=== PATIENT | male | born 1980 | race Caucasian/White ===

== ENCOUNTER 2016-06-10 12:20 | Emergency (ER) | payer OTHER ==
[2016-06-10 12:32] LABS: URINE BILIRUBIN 1+ (NEGATIVE); URINE BLOOD 3+ (NEGATIVE); URINE GLUCOSE (UA) NORMAL (NORMAL); URINE KETONE TRACE (NEGATIVE); URINE LEUKOCYTE ESTERASE TRACE (NEGATIVE); URINE NITRATE NEGATIVE (NEGATIVE); URINE PROTEIN 1+ (NEGATIVE)
[2016-06-10 12:47] LABS: URINE BACTERIA TRACE (NONE SEEN); URINE CALCIUM OXALATE CRYSTALS 0-2 /[HPF] (NONE SEEN); URINE MUCUS TRACE; URINE RBC >20 /[HPF] (0-2); URINE SQUAMOUS EPITHELIAL CELL 0-10 /[HPF] (NONE SEEN); URINE WBC 0-5 /[HPF] (0-3)
[2016-06-10 13:32] LABS: BLOOD UREA NITROGEN 11 mg/dL (7-18); CALCIUM 9.1 mg/dL (8.7-10.7); CARBON DIOXIDE 28 mmol/L (21-32); CREATININE 0.7 mg/dL (0.6-1.3); GLUCOSE,RANDOM 94 mg/dL (70-99); POTASSIUM 4.4 mmol/L (3.5-5.1); SODIUM 141 mmol/L (136-145)
[2016-06-10 13:36] LABS: BASO # 0.1 10_X3_uL (0.0-0.1); BASO % 1.6 % (0.2-1.2); EOS # 0.3 10_X3_uL (0.0-0.5); EOS % 5.2 % (0.8-7.0); GRAN # 3.1 10_X3_uL (1.8-5.4); GRAN % 49.3 % (34.0-67.9); HEMATOCRIT 46.1 % (40-51); HEMOGLOBIN 15.9 g/dL (13.7-17.5); MEAN CORPUSCULAR HGB CONC 34.5 g/dL (32.0-36.0); MEAN CORPUSCULAR VOLUME 89.9 fL (79-92); MEAN PLATELET VOLUME 10.6 fl (7.5-11.5); MONO # 0.8 10_X3_uL (0.3-0.8); MONO % 11.9 % (5.3-12.2); PLATELET COUNT 183 x10_3/uL (163-337); RED BLOOD COUNT 5.13 x10_6/uL (4.6-6.1); WHITE BLOOD COUNT 6.3 x10_3/uL (4.2-9.1)
== END 2016-06-10 14:21 | disposition home or self-care (01) ==
LOC: ER 12:20
PROVIDERS: Internal Medicine
DX: N20.0 Calculus of kidney (principal); R30.0 Dysuria
CPT/HCPCS: 36415; 74150; 80048; 81001; 85025; 96361; 96372; 96374; 99070; 99283-25